=== PATIENT | female | born 1975 | race African-American/Black ===

== ENCOUNTER 2019-07-17 01:54 | Emergency (ER) | payer BC, OTHER ==
[~2019-07-17] VITALS: Ht 167.6 cm; Wt 95.3 kg
[2019-07-17 02:29] LABS: URINE BILIRUBIN NEGATIVE (Negative); URINE BLOOD NEGATIVE (Negative); URINE CLARITY SL CLOUDY; URINE COLOR YELLOW; URINE GLUCOSE-RANDOM* NEGATIVE (Negative); URINE KETONES NEGATIVE (Negative); URINE LEUKOCYTES-REFLEX NEGATIVE (Negative); URINE NITRITE-REFLEX NEGATIVE (Negative); URINE PROTEIN (DIPSTICK) NEGATIVE (Negative); URINE SPECIFIC GRAVITY 1.015 (1.005-1.035)
[2019-07-17 03:07] LABS: ABSOLUTE NEUTROPHILS 4.9 thou/uL (1.4-8.2); BASOPHILS 0.7 % (0.0-2.0); EOSINOPHILS 2.3 % (0.0-3.0); HEMATOCRIT 35.9 % (37.0-47.0); HEMOGLOBIN 11.6 gm/dL (12.0-15.0); MCH 27.6 pg (26.0-34.0); MCHC 32.4 g/dL (28.0-37.0); MCV 85.1 fL (80.0-100.0); PLATELET COUNT 369 thou/uL (150-400); RBC 4.21 mil/uL (4.20-5.00); RDW 13.6 % (10.5-14.5); WBC 7.9 thou/uL (4.0-11.0)
[2019-07-17 03:10] LABS: ANION GAP 11 mmol/L (7-16); BUN 10 mg/dL (7-18); CALCIUM 8.8 mg/dL (8.5-10.1); CHLORIDE 102 mmol/L (98-107); CO2 26 mmol/L (21-32); CREATININE 0.9 mg/dL (0.6-1.0); GLUCOSE 94 mg/dL (74-106); SODIUM 139 mmol/L (136-145)
[2019-07-17 03:11] LABS: APTT 27.3 Seconds (24.5-32.8); PROTIME 9.6 Seconds (9.3-11.4)
[2019-07-17 03:20] LABS: ALBUMIN 3.5 g/dL (3.4-5.0); LIPASE 178 U/L (73-393); SGOT 18 U/L (15-37); SGPT 16 U/L (30-65); TOTAL BILIRUBIN 0.2 mg/dL (<0.1-1.0); TOTAL PROTEIN 7.6 g/dL (6.4-8.2); TROPONIN-I <0.06 ng/mL (<0.06)
[2019-07-17] MEDS ORDERED: TRAMADOL 50 MG50 MG PO (03:22)
[2019-07-17] MEDS ORDERED: PRILOSEC OTC20 MG PO (03:22)
[2019-07-17 04:00] VITALS: BP 126/80
[2019-07-17] MEDS ORDERED: ONDANSETRON ODT8 MG PO (05:25)
--- NOTE | 2019-07-17 08:45 | EKG ---
[place] [address] [place] [address] ELECTROCARDIOGRAM REPORT Name: CHUCK SANDY [id number] Admission: 07/17/19 Attend Phys: Discharge: 07/17/19 Date of : 73 Report #: [id number] THIS REPORT FOR: //name// [facility] ED Test Date: 2019-07-17 Test Time: 04:02:59 Pat Name: CHUCK SANDY Department: Room: Gender: F Mixer Attendant: AJLEONELA : 1975 Requested By: Nasim Dela Cruz Order Number: [id number] MD: Carlo Thorne Measurements Intervals [place] Rate: 66 P: 53 AK: 159 QRS: 42 QRSD: 88 T: 31 QT: 413 QTc: 433 Interpretive Statements Sinus rhythm ST elev, probable normal early repol pattern No previous ECG available for comparison Electronically Signed On 07-17-2019 8:44:45 CDT by Carlo Thorne [email or web address] <ELECTRONICALLY SIGNED> By: Carlo Thorne MD, [facility] 07/17/19 [id number] Carlo Thorne MD, FACC /EPI
== END 2019-07-17 05:39 | disposition home or self-care (01) ==
LOC: ER 01:54
PROVIDERS: Emergency Medicine
DX: K92.0 Hematemesis (principal); G89.29 Other chronic pain; R10.13 Epigastric pain